=== PATIENT | male | born 1975 | race African-American/Black ===

== ENCOUNTER 2017-06-22 02:36 | Emergency (ER) | payer OTHER ==
[~2017-06-22] VITALS: Ht 157.5 cm; Wt 47.6 kg
[2017-06-22 03:00] VITALS: BP 153/96
== END 2017-06-22 03:00 | disposition other institution (70) ==
LOC: EDSEX 02:36 → ED 02:36
DX: I10 Essential (primary) hypertension (principal); F17.210 Nicotine dependence, cigarettes, uncomplicated